=== PATIENT | female | born 1965 | race African-American/Black ===

== ENCOUNTER 2019-04-28 19:35 | Inpatient (IN) ==
[2019-04-28] MEDS ORDERED: ALUM/MAG/SIMETH/LIDO VISC 1:1 30 ML BOTTLE PO STA (21:15)
[2019-04-28 21:35] LABS: Alanine Aminotransferase 23 U/L (13-56); Albumin 3.2 G/DL (3.4-5.0); Alkaline Phosphatase 103 U/L (45-117); Aspartate Amino Transferase 15 U/L (0-37); Bilirubin,Total < 0.39 MG/DL (0.2-1.0); Blood Urea Nitrogen 14 MG/DL (7-18); Calcium 8.6 MG/DL (8.5-10.1); Estimated Glom Filtration Rate 83 ML/MIN; Glucose 133 MG/DL (74-106); Osmolality,Calculated 281.4 MOS/KG (273-304); Total Protein 7.8 G/DL (6.4-8.3)
[2019-04-28 21:44] LABS: Basophils % 0.2 % (0.0-0.8); Eosinophils # 0.2 10*3/uL (0.0-0.87); Eosinophils % 2.6 % (0.00-10.9); Hematocrit 32.9 VOL% (35.7-47.0); Hemoglobin 11.2 GM/DL (12.0-16.0); Immature Granulocytes % 0.3 %; Immature Granulocytes Absolute 0.03 #; Lymphocytes # 1.9 10*3/uL (1.4-4.0); Lymphocytes % 22.6 % (21.3-54.2); Mean Corpuscular Volume 87.5 FL (87-102); Mean Platelet Volume 9.1 FL (9.6-12.0); Monocytes % 6.2 % (1.7-12.7); Neutrophils % 68.1 % (38.7-73.9); Platelet Count 319 T/CUMM (130-400); Red Blood Count 3.76 MC/CUMM (3.8-5.5); Red Cell Distribution Width 13.2 % (9.3-17.3); White Blood Count 8.6 T/CUMM (4-12)
[2019-04-28] MEDS ORDERED: ONDANSETRON 4 MG/2 ML VIAL IV ONE (21:54)
[2019-04-28] MEDS ORDERED: SODIUM CHLORIDE 0.9% 1,000 ML IV STA (21:54)
[2019-04-28] MEDS ORDERED: MORPHINE 4 MG/1 ML VIAL IV STA (21:54)
[2019-04-28] MEDS ORDERED: cefTRIAXone 1,000 MG in SODIUM CHLORIDE 0.9% 100 ML IV STA (22:09)
[2019-04-29] MEDS ORDERED: NICOTINE 21 MG/24 HR PATCH TRANSDERM PRN (00:48)
[2019-04-29] MEDS ORDERED: BISACODYL 5 MG TABLET PO PRN (00:48)
[2019-04-29] MEDS ORDERED: traZODone 50 MG TABLET PO PRN (00:48)
[2019-04-29] MEDS ORDERED: PROMETHAZINE 25 MG/1 ML VIAL IM PRN (00:48)
[2019-04-29] MEDS ORDERED: diphenhydrAMINE CAP 25 MG CAPSULE PO PRN (00:48)
[2019-04-29] MEDS ORDERED: ONDANSETRON 4 MG/2 ML VIAL IV PRN (00:48)
[2019-04-29] MEDS ORDERED: DEXTROSE 50% 25 GM/50 ML VIAL IV PRN (00:52)
[2019-04-29] MEDS ORDERED: GLUCAGON 1 MG VIAL IM PRN (00:52)
[2019-04-29 01:49] LABS: Risk Ratio 3.35; VLDL CHOLESTEROL 51.6 MG/DL
[2019-04-29] MEDS: SODIUM CHLORIDE 0.9% 1,000 ML IV SCH ×3 (01:59→17:27)
[2019-04-29] MEDS: POTASSIUM CHLORIDE 20 MEQ TABLET PO PRN ×4 (03:00→13:51)
[2019-04-29] MEDS: MORPHINE 4 MG/1 ML VIAL IV PRN (03:01)
[2019-04-29 05:21] LABS: Barbiturates Screen,Urine Negative (Negative); Benzodiazepines Screen,Urine Negative (Negative); Cannabinoid Screen,Urine Negative (Negative); Opiate Screen,Urine Positive (Negative); Phencyclidine Screen,Urine Negative (Negative)
[2019-04-29] MEDS: LEVOTHYROXINE 50 MCG TABLET PO SCH (06:51)
[2019-04-29 07:55] LABS: Alanine Aminotransferase 18 U/L (13-56); Albumin 2.5 G/DL (3.4-5.0); Alkaline Phosphatase 88 U/L (45-117); Aspartate Amino Transferase 12 U/L (0-37); Bilirubin,Total < 0.39 MG/DL (0.2-1.0); Blood Urea Nitrogen 11 MG/DL (7-18); Calcium 7.9 MG/DL (8.5-10.1); Estimated Glom Filtration Rate 95 ML/MIN; Glucose 126 MG/DL (74-106); Osmolality,Calculated 281.3 MOS/KG (273-304); Total Protein 6.4 G/DL (6.4-8.3)
[2019-04-29] MEDS: INSULIN REGULAR 100 UNIT/ML SUBCUT SCH ×4 (08:59→21:20)
[2019-04-29] MEDS: LOSARTAN 50 MG TABLET PO SCH (09:00)
[2019-04-29] MEDS ORDERED: hydroCHLOROthiazide 25 MG TABLET PO SCH (09:00)
[2019-04-29] MEDS: PANTOPRAZOLE 40 MG VIAL IV SCH ×2 (09:04→21:21)
[2019-04-29] MEDS ORDERED: MAGNESIUM SULF RIDER 2 GM in PREMIX 1 EACH IV ONE (09:36)
[2019-04-29] MEDS: FENOFIBRATE 145 MG TABLET PO SCH (13:51)
[2019-04-29 14:15] LABS: Apearance,Urine CLEAR (Clear); Bilirubin,Urine Negative (Negative); Blood, Urine Small mg/dL (Negative); Glucose,Urine (UA) Negative (Negative); Ketones,Urine Negative (Negative); Nitrite,Urine Negative (Negative); Protein,Urine Negative; RBC,Urine 2 /HPF (0-4); Squamous Epithelial Cell,Urine Occasional /HPF (0-10); Urine Color Straw (Yellow); Urine Urobilinogen < 2.0 EU/DL (0.2-1.0); WBC,Urine <1 /HPF (0-6)
[2019-04-29] MEDS: ACETAMINOPHEN 325 MG TABLET PO PRN ×2 (17:48→23:11)
[2019-04-29] MEDS: OLANZapine 5 MG TABLET PO SCH (21:21)
[2019-04-30] MEDS: SODIUM CHLORIDE 0.9% 1,000 ML IV SCH ×4 (00:03→23:55)
[2019-04-30 04:24] LABS: Basophils % 0.2 % (0.0-0.8); Eosinophils # 0.2 10*3/uL (0.0-0.87); Eosinophils % 2.7 % (0.00-10.9); Hematocrit 29.7 VOL% (35.7-47.0); Hemoglobin 10.1 GM/DL (12.0-16.0); Immature Granulocytes % 0.2 %; Immature Granulocytes Absolute 0.01 #; Lymphocytes # 1.8 10*3/uL (1.4-4.0); Lymphocytes % 31.2 % (21.3-54.2); Mean Corpuscular Volume 87.4 FL (87-102); Mean Platelet Volume 9.2 FL (9.6-12.0); Neutrophils % 58.7 % (38.7-73.9); Platelet Count 309 T/CUMM (130-400); Red Cell Distribution Width 13.3 % (9.3-17.3); White Blood Count 5.6 T/CUMM (4-12)
[2019-04-30 04:45] LABS: Alanine Aminotransferase 18 U/L (13-56); Albumin 2.6 G/DL (3.4-5.0); Alkaline Phosphatase 88 U/L (45-117); Aspartate Amino Transferase 12 U/L (0-37); Bilirubin,Total < 0.39 MG/DL (0.2-1.0); Blood Urea Nitrogen 10 MG/DL (7-18); Calcium 7.6 MG/DL (8.5-10.1); Estimated Glom Filtration Rate 110 ML/MIN; Glucose 166 MG/DL (74-106); Osmolality,Calculated 285.1 MOS/KG (273-304); Total Protein 6.4 G/DL (6.4-8.3)
[2019-04-30] MEDS: LEVOTHYROXINE 50 MCG TABLET PO SCH (07:12)
[2019-04-30] MEDS: INSULIN REGULAR 100 UNIT/ML SUBCUT SCH ×4 (07:30→21:59)
[2019-04-30] MEDS: FENOFIBRATE 145 MG TABLET PO SCH (08:49)
[2019-04-30] MEDS: LOSARTAN 50 MG TABLET PO SCH (08:49)
[2019-04-30] MEDS: PANTOPRAZOLE 40 MG VIAL IV SCH ×2 (08:50→21:10)
[2019-04-30] MEDS ORDERED: ceFAZolin 1,000 MG in SYRINGE 1 EACH IV ONE (09:08)
[2019-04-30] MEDS: OMEGA 3 ACID ETHYL ESTERS 1 GM CAPSULE PO SCH ×2 (13:24→21:15)
[2019-04-30] MEDS: METHYLPHENIDATE HCL 30 MG PO SCH (13:27)
[2019-04-30] MEDS: ACETAMINOPHEN 325 MG TABLET PO PRN (16:36)
[2019-04-30] MEDS ORDERED: CALCIUM CARBONATE CHEW 500 MG TABLET PO ONE (17:57)
[2019-04-30] MEDS: SIMVASTATIN 20 MG TABLET PO SCH (21:15)
[2019-04-30] MEDS: OLANZapine 5 MG TABLET PO SCH (21:15)
[2019-05-01] MEDS: LEVOTHYROXINE 50 MCG TABLET PO SCH (06:07)
[2019-05-01 06:34] LABS: Basophils % 0.3 % (0.0-0.8); Eosinophils # 0.2 10*3/uL (0.0-0.87); Eosinophils % 2.7 % (0.00-10.9); Hematocrit 30.7 VOL% (35.7-47.0); Hemoglobin 10.3 GM/DL (12.0-16.0); Immature Granulocytes % 0.5 %; Immature Granulocytes Absolute 0.03 #; Lymphocytes # 1.5 10*3/uL (1.4-4.0); Lymphocytes % 23.4 % (21.3-54.2); Mean Corpuscular HGB Conc 33.6 GM/DL (32-36); Mean Corpuscular Volume 87.7 FL (87-102); Mean Platelet Volume 9.2 FL (9.6-12.0); Neutrophils % 67.1 % (38.7-73.9); Platelet Count 331 T/CUMM (130-400); Red Cell Distribution Width 13.3 % (9.3-17.3); White Blood Count 6.2 T/CUMM (4-12)
[2019-05-01 07:03] LABS: Albumin 2.8 G/DL (3.4-5.0); Bilirubin,Total 0.5 MG/DL (0.2-1.0); Calcium 7.9 MG/DL (8.5-10.1); Total Protein 6.8 G/DL (6.4-8.3)
[2019-05-01] MEDS: INSULIN REGULAR 100 UNIT/ML SUBCUT SCH ×4 (07:13→22:12)
[2019-05-01] MEDS ORDERED: ceFAZolin 1,000 MG in SYRINGE 1 EACH IV ONE (07:30)
[2019-05-01] MEDS: SODIUM CHLORIDE 0.9% 1,000 ML IV SCH ×2 (07:46→22:47)
[2019-05-01] MEDS: PANTOPRAZOLE 40 MG VIAL IV SCH ×2 (08:32→22:11)
[2019-05-01] MEDS: LOSARTAN 50 MG TABLET PO SCH (08:33)
[2019-05-01] MEDS ORDERED: TISSUE ADHESIVE 1 EACH APPLICATOR TOP ONE (08:49)
[2019-05-01] MEDS ORDERED: SUGAMMADEX 200 MG/2 ML VIAL IV ONE (10:46)
[2019-05-01] MEDS ORDERED: PROPOFOL 200 MG/20 ML VIAL IV ONE (11:06)
[2019-05-01] MEDS ORDERED: LIDOCAINE 2% 5 ML VIAL ONE (11:06)
[2019-05-01] MEDS ORDERED: SEVOFLURANE 1 UNIT/15 MINUTE INH ONE (11:07)
[2019-05-01] MEDS ORDERED: GLYCOPYRROLATE 0.4 MG/2 ML VIAL ONE (11:07)
[2019-05-01] MEDS ORDERED: fentaNYL 100 MCG/2 ML VIAL ONE ×2 (11:07→13:24)
[2019-05-01] MEDS ORDERED: ROCURONIUM 100 MG/10 ML VIAL IV ONE (11:07)
[2019-05-01] MEDS ORDERED: LABETALOL 20 MG/4 ML SYRINGE IV ONE (11:07)
[2019-05-01] MEDS ORDERED: NEOSTIGMINE 10 MG/10 ML VIAL ONE (11:07)
[2019-05-01] MEDS ORDERED: ONDANSETRON 4 MG/2 ML VIAL ONE ×2 (11:07→11:12)
[2019-05-01] MEDS ORDERED: MIDAZOLAM 2 MG/2 ML VIAL ONE (11:07)
[2019-05-01] MEDS ORDERED: HYDROmorphone 2 MG/1 ML VIAL ONE (11:12)
[2019-05-01] MEDS ORDERED: ONDANSETRON 4 MG/2 ML VIAL IV PRN (11:12)
[2019-05-01] MEDS: HYDROmorphone 2 MG/1 ML VIAL IV PRN ×4 (11:15→11:30)
[2019-05-01] MEDS: OMEGA 3 ACID ETHYL ESTERS 1 GM CAPSULE PO SCH ×2 (11:20→22:14)
[2019-05-01] MEDS: METHYLPHENIDATE HCL 30 MG PO SCH (12:14)
[2019-05-01] MEDS: MORPHINE 4 MG/1 ML VIAL IV PRN ×2 (14:45→22:17)
[2019-05-01] MEDS: OLANZapine 5 MG TABLET PO SCH (22:14)
[2019-05-01] MEDS: SIMVASTATIN 20 MG TABLET PO SCH (22:15)
[2019-05-02 04:55] LABS: Basophils % 0.3 % (0.0-0.8); Eosinophils # 0.2 10*3/uL (0.0-0.87); Eosinophils % 2.6 % (0.00-10.9); Hematocrit 28.3 VOL% (35.7-47.0); Hemoglobin 9.5 GM/DL (12.0-16.0); Immature Granulocytes % 0.3 %; Immature Granulocytes Absolute 0.02 #; Lymphocytes # 1.9 10*3/uL (1.4-4.0); Lymphocytes % 25.7 % (21.3-54.2); Mean Corpuscular HGB Conc 33.6 GM/DL (32-36); Mean Corpuscular Volume 87.9 FL (87-102); Mean Platelet Volume 9.4 FL (9.6-12.0); Monocytes % 6.4 % (1.7-12.7); Neutrophils % 64.7 % (38.7-73.9); Platelet Count 310 T/CUMM (130-400); Red Blood Count 3.22 MC/CUMM (3.8-5.5); Red Cell Distribution Width 13.6 % (9.3-17.3); White Blood Count 7.3 T/CUMM (4-12)
[2019-05-02 05:20] LABS: Alanine Aminotransferase 35 U/L (13-56); Albumin 2.4 G/DL (3.4-5.0); Alkaline Phosphatase 78 U/L (45-117); Aspartate Amino Transferase 28 U/L (0-37); Bilirubin,Total < 0.39 MG/DL (0.2-1.0); Blood Urea Nitrogen 8 MG/DL (7-18); Calcium 7.4 MG/DL (8.5-10.1); Estimated Glom Filtration Rate 110 ML/MIN; Glucose 111 MG/DL (74-106); Osmolality,Calculated 286.7 MOS/KG (273-304); Total Protein 6.3 G/DL (6.4-8.3)
[2019-05-02] MEDS: LEVOTHYROXINE 50 MCG TABLET PO SCH (07:12)
[2019-05-02] MEDS: INSULIN REGULAR 100 UNIT/ML SUBCUT SCH (07:43)
[2019-05-02 07:52] VITALS: BP 167/86
[2019-05-02] MEDS: LOSARTAN 50 MG TABLET PO SCH (08:48)
[2019-05-02] MEDS: OMEGA 3 ACID ETHYL ESTERS 1 GM CAPSULE PO SCH (08:48)
[2019-05-02] MEDS: METHYLPHENIDATE HCL 30 MG PO SCH (08:48)
[2019-05-02] MEDS: PANTOPRAZOLE 40 MG VIAL IV SCH (08:48)
== END 2019-05-02 10:57 | disposition home or self-care (01) | DRG 418 ==
LOC: N.ED 19:35 → N.EDINP 19:35 → N.3E 04-29 01:37
PROVIDERS: ADMIT Internal Medicine; ATTEND Internal Medicine
PROC: LAPCHOL (2019-05-01 09:19)